=== PATIENT | female | born 1950 | race Caucasian/White ===

== ENCOUNTER → 2023-12-22 07:55 | Outpatient (REF) | payer MEDICARE, OTHER, SELFPAY | LOC: RAD 07:55 | PROVIDERS: ATTENDING PHYSICIAN Internal Medicine | DX: Z13.820 Encounter for screening for osteoporosis (principal); Z78.0 Asymptomatic menopausal state | CPT/HCPCS: 77080 ==

== ENCOUNTER → 2024-12-15 12:25 | Outpatient (REF) | payer MEDICARE, OTHER, SELFPAY | LOC: REG 12:25 | PROVIDERS: ATTENDING PHYSICIAN Internal Medicine | DX: A07.1 Giardiasis [lambliasis] (principal) | CPT/HCPCS: 87328; 87329 ==

== ENCOUNTER → 2025-04-30 08:48 | Outpatient (REF) | payer MEDICARE, OTHER, SELFPAY | LOC: RCS 08:48 | PROVIDERS: ATTENDING PHYSICIAN Internal Medicine | DX: R94.31 Abnormal electrocardiogram [ECG] [EKG] (principal); E78.01 Familial hypercholesterolemia | CPT/HCPCS: 75571; 93306 ==

== ENCOUNTER → 2025-05-20 08:18 | Outpatient (REF) | payer MEDICARE, OTHER, SELFPAY | LOC: RCS 08:18 | PROVIDERS: ATTENDING PHYSICIAN Internal Medicine | DX: E78.49 Other hyperlipidemia (principal); I25.10 Atherosclerotic heart disease of native coronary artery without angina pectoris | CPT/HCPCS: 93017; 93350 ==